=== PATIENT | male | born 1995 | race Caucasian/White ===

== ENCOUNTER 2020-07-17 05:11 | Emergency (ER) | payer OTHER ==
[~2020-07-17] VITALS: Ht 177.8 cm; Wt 76.2 kg
--- NOTE | 2020-07-17 05:30 | NUR ---
PRESENTED TO THE ER FOR C/O LOWER ABD PAIN, N/V/D X 3 DAYS. PT WAS PLACED IN BED 7 ER. ON MONITOR, VSS. WILL CONT TO MONITOR
[2020-07-17 05:59] LABS: BASOPHILS % (AUTO) 0.3 % (0.0-2.0); HEMATOCRIT 42 % (39-51); HEMOGLOBIN 14.1 g/dL (13.5-17.5); LYMPHOCYTES # (AUTO) 2.2 /CMM (0.8-4.8); LYMPHOCYTES % (AUTO) 20.5 % (20.0-44.0); MEAN CORPUSCULAR HGB CONC 34 g/dl (31.0-36.0); MEAN CORPUSCULAR VOLUME 90 fL (80-96); MONOCYTES # (AUTO) 1.4 /CMM (0.1-1.30); MONOCYTES % (AUTO) 13.4 % (2.0-12.0); NEUTROPHILS # (AUTO) 6.8 /CMM (1.8-8.9); NEUTROPHILS % (AUTO) 62.8 % (43.0-81.0); PLATELET COUNT (AUTO) 175 /CMM (150-450); RED BLOOD CELL COUNT(AUTO) 4.65 MIL/uL (4.5-6.0); WHITE BLOOD COUNT (AUTO) 10.8 K/uL (4.3-11.0)
[2020-07-17 05:59] LABS: BILIRUBIN,URINE NEGATIVE (NEGATIVE); COLOR,URINE YELLOW (YELLOW); LEUKOCYTE ESTERASE ,URINE NEGATIVE (NEGATIVE); NITRITE, URINE NEGATIVE (NEGATIVE); PH,URINE 6.5 (5.0-8.0); PROTEIN,URINE NEGATIVE (NEGATIVE); UGLUCOSE NEGATIVE (NEGATIVE); UROBILINOGEN,URINE 0.2 EU/dL (0.2)
[2020-07-17 06:15] LABS: CALCIUM, SERUM 8.7 mg/dL (8.5-10.1); CREATININE 1.1 mg/dL (0.6-1.3); POTASSIUM 3.7 mmol/L (3.5-5.1)
[2020-07-17 06:21] LABS: ALBUMIN 3.7 g/dL (3.4-5.0); BILIRUBIN,DIRECT 0.1 mg/dL (0.0-0.2); BILIRUBIN,TOTAL 0.8 mg/dL (0.2-1.0); TOTAL PROTEIN, SERUM 7.9 g/dL (6.4-8.2)
[2020-07-17] MEDS ORDERED: IV NS 0.9% 1,000 ML BAG IV ONE (06:30)
[2020-07-17] MEDS ORDERED: IOHEXOL-300 100 ML VIAL IV ONE (07:01)
--- NOTE | 2020-07-17 07:07 | NUR ---
PT TRANSPORTED TO RADIOLOGY FOR CT ABD/PELVIS WITH IV CONTRAST.
--- NOTE | 2020-07-17 07:36 | NUR ---
The patient is bed. Alert and oriented x4. Denies pain. In room air and denies SOB. Respiration regular and unlabored. Will continue to monitor the patient.
[2020-07-17] MEDS ORDERED: CIPR-262 PO (07:58)
[2020-07-17 08:09] VITALS: BP 141/84
--- NOTE | 2020-07-17 08:09 | NUR ---
Patient discharged to home in stable condition. Written and verbal after care instructions given. Patient verbalizes understanding of instruction.IV removed. Catheter intact and site benign. Pressure and 4x4 applied to site. No bleeding noted.
== END 2020-07-17 08:09 | disposition home or self-care (01) ==
LOC: ER 05:18
DX: K52.9 Noninfective gastroenteritis and colitis, unspecified (principal); R11.2 Nausea with vomiting, unspecified; Z79.899 Other long term (current) drug therapy
CPT/HCPCS: 36415; 74177; 80048; 80076; 81003; 83690; 85025; 85730; 87086; 99285; J7030; Q9967